=== PATIENT | female | born 1990 | race Hispanic/Latino ===

== ENCOUNTER 2018-10-30 19:24 | Emergency (ER) | payer OTHER ==
[2018-10-30 19:37] VITALS: O2SAT 100
[2018-10-30] MEDS ORDERED: Sodium Chloride 0.9% 1,000 ML IV STA (20:22)
[2018-10-30] MEDS ORDERED: Albuterol-Ipratrop 3 mg / 0.5 (3 ml) UD IH STA ×2 (20:23)
--- NOTE | 2018-10-30 20:26 | ED PDOC ---
HPI: CCC, URI, Sore Throat Time Seen by Provider: 10/30/18 20:15 Chief Complaint (Nursing): Shortness Of Breath Chief Complaint (Provider): cough, shortness of breath History Per: Patient History/Exam Limitations: no limitations Onset/Duration Of Symptoms: Days (2) Current Symptoms Are (Timing): Still Present Associated Symptoms: Fever, Chills, Cough, Nasal Congestion Additional Complaint(s): 28 y/o female, approximately 32 weeks gestation, presents for evaluation of cough and congestion x 2 days. Patient states she was seen by her primary doctor at onset of symptoms and prescribed Augmentin for a throat infection, but patient reports fever of 100F last night, and states she woke up this morning wheezing, and short of breath. Patient states she feels congested in her chest but is unable to bring up sputum with cough. Patient now complaining of abdominal pain. Denies fever, vomiting, chest pain, palpitations, vomiting, changes in bowel movements, vaginal bleeding/discharge, leg pain/swelling. Past Medical History Reviewed: Historical Data, Nursing Documentation, Vital Signs Vital Signs: Last Vital Signs Temp 97.6 F 10/30/18 19:33 Pulse 84 10/30/18 19:33 Resp 16 10/30/18 19:33 BP 123/79 10/30/18 19:33 Pulse Ox 100 10/30/18 19:33 - Medical History PMH: No Chronic Diseases - Family History Family History: States: No Known Family Hx - Living Arrangements Living Arrangements: With Family - Home Medications Home Medications: Ambulatory Orders Medication Instructions Recorded Albuterol HFA [Ventolin HFA 90 1 puff IH Q4 PRN #1 inh 10/30/18 mcg/actuation (8 g)] Prednisone [Deltasone] 40 mg PO DAILY #8 tablet 10/30/18 - Allergies Allergies/Adverse Reactions: Allergies Allergy/AdvReac Type Severity Reaction Status Date / Time "Atihistamines" AdvReac Anxiety Uncoded 10/30/18 19:35 Review of Systems ROS Statement: Except As Marked, All Systems Reviewed And Found Negative ENT: Positive for: Nose Congestion, Throat Pain Respiratory: Positive for: Cough, Shortness of Breath, Wheezing Physical Exam - Reviewed Nursing Documentation Reviewed: Yes Vital Signs Reviewed: Yes - Physical Exam Appears: Positive for: Well, Non-toxic, Uncomfortable (actively coughing) Head Exam: Positive for: ATRAUMATIC, NORMAL INSPECTION, NORMOCEPHALIC Skin: Positive for: Normal Color Eye Exam: Positive for: Normal appearance ENT: Positive for: Nasal Congestion, Pharyngeal Erythema Neck: Positive for: Normal, Painless ROM Cardiovascular/Chest: Positive for: Regular Rate, Rhythm Respiratory: Positive for: Rhonchi, Wheezing Gastrointestinal/Abdominal: Positive for: Normal Exam Back: Positive for: Normal Inspection Extremity: Positive for: Normal ROM Neurologic/Psych: Positive for: Alert, Oriented (x3) - Laboratory Results Result Diagrams: 10/30/18 20:50 10/30/18 20:50 - ECG ECG: Positive for: Viewed By Me (reviewed by ED attending) ECG Rhythm: Positive for: Sinus Rhythm O2 Sat by Pulse Oximetry: 100 - Progress ED Course And Treament: -cbc -cmp -rapid strep -influenza -IV NS bolus -duoneb x 2 On re-eval, patient states she is feeling better and would like to be discharged. Wheezing improved. No respiratory distress. Vitals stable Prednisone ordered Patient educated on findings, discharged with rx Albuterol HFA, prednisone Advised to continue antibiotic Follow up with primary doctor tomorrow Return precautions given Patient requires no further intervention in the ED and is stable for discharge at this time Patient discharged and transferred up to OB ED Disposition - Clinical Impression Clinical Impression: Bronchitis - Patient ED Disposition Is Patient to be Admitted: No Counseled Patient/Family Regarding: Studies Performed, Diagnosis, Need For Followup, Rx Given - Disposition Disposition: Routine/Home Disposition Time: 22:04 Condition: IMPROVED Prescriptions: Albuterol HFA [Ventolin HFA 90 mcg/actuation (8 g)] 1 puff IH Q4 PRN #1 inh PRN Reason: Wheezing Prednisone [Deltasone] 40 mg PO DAILY #8 tablet Instructions: Acute Bronchitis Forms: [employer] (Eritrean)
[2018-10-30 21:07] LABS: BASO % 0.5 % (0.0-2.0); EOS # 0.3 K/uL (0.0-0.7); EOS % 3.9 % (0.0-4.0); HEMOGLOBIN 11.4 g/dL (12.0-16.0); LYMPH # 1.8 K/uL (1.0-4.3); LYMPH % 22.5 % (20.0-40.0); MEAN CELL VOLUME 83.1 fl (81.0-99.0); MEAN CORPUSCULAR HEMOGLOBIN 28.1 pg (27.0-31.0); MEAN CORPUSCULAR HGB CONC 33.8 g/dL (33.0-37.0); MEAN PLATELET VOLUME 9.6 fl (7.2-11.7); MONO # 0.9 K/uL (0.0-0.8); MONO % 11.1 % (0.0-10.0); NRBC % 0.1 % (0.0-0.0); RBC 4.08 Mil/uL (3.80-5.20); RED CELL DISTRIBUTION WIDTH 13.1 % (11.5-14.5); WHITE BLOOD COUNT 8.1 K/uL (4.8-10.8)
[2018-10-30 21:30] LABS: ALB/GLOB RATIO 1.1 (1.0-2.1); ALBUMIN 3.6 g/dL (3.5-5.0); ALT/SGPT 16 U/L (9-52); AST/SGOT 24 U/L (14-36); BLOOD UREA NITROGEN 7 mg/dl (7-17); CALCIUM 9.6 mg/dL (8.4-10.2); GFR NON-AFRICAN AMERICAN > 60
[2018-10-30 21:41] LABS: SQUAMOUS EPITHIAL 1 /hpf (0-5); URINE BACTERIA MANY (<OCC); URINE BILIRUBIN NEGATIVE (NEGATIVE); URINE BLOOD NEGATIVE (NEGATIVE); URINE CLARITY CLEAR (Clear); URINE COLOR STRAW (YELLOW); URINE GLUCOSE (UA) NEG (NEGATIVE); URINE LEUKOCYTE ESTERASE NEG Leu/uL (Negative); URINE PROTEIN NEGATIVE (NEGATIVE); URINE UROBILINOGEN 0.2-1.0 mg/dL (0.2-1.0)
[2018-10-30 22:05] VITALS: BP 116/74; PULSE 93; RESP 18; TEMP 97.8
--- NOTE | 2018-10-31 09:15 | OBHP ---
Datetime: 10/30/2018 23:44 IP Adm Impression: , intrauterine IP Admit Plan: Observation/Evaluation Admit Comment, IP Provider: 28 Y/O with IUP at EGA 32 weeks by first T , who presents toda y with c/o difficulty breathing and wheezing. Patient states that 5 days ago she started with sore th roat and flu like symptoms and on Saturday she visited her PMD and was started on Augmentin 875 PO q12 h for bronchitis, she also reports she had fever Saturday and Saturday in the low 100s that was getti ng relief with Tylenol. Patient states she was afebrile today and feeling better, but then in the aft ernoon she started feeling some SOB and wheezing and came to the ED and was given Albuterol neb inh a nd Prednisone x2 doses oral with some relief of symptoms. Patient states she was also concerned that her bronchitis could affect her . Patient denies VB, CONTX, LOF, JULIAN, CP, or fever at this ti me of encounter. Patient reports + FM. Patient reports in the ED throat swab and Flu test done with r esults negative. ROS: Negative, except as per HPI provider: Dr Summers PMH: Denies. Denies Asthma hx FMH: Denies SOCHx: Denies ETOH/Tobacco/drug use ALLERG: Benadryl MEDS: PN Vit, Augmentin, Prednisone oral PE GEN: NAD HEENT: NCAT RESP: Noted diffuse wheezing b/l, good air entry. CV: RRR, S1 S2 present Abdomen: Gravid EXT: No edema FHR: 130s t0 140s A/P 28 Y/O with IUP at EGA 32 weeks by first T , who presented today with c/o SOB and wheezi ng seen in the ED and treated for Bronchitis. FHR monitored and confirmed 130s-140s Plan: -C/w Augmentin 875 -Ventolin neb as needed for SOB -C/w prednisone titrate down dose -D/C Home and F/u with your provider in 2 to 3 days -Return to the ED if your SOB recurs or you have fever>100.4, CP or other any concerning symptoms. Case seen and discussed with attending Dr Kelley at bedside Bib Araya MD PGY1 Addendum: I saw and examined patient. heart tracing category 1. Discussed plan with patient all patien t questions answered. Patient discharged home and follow up in office next week. Allie General - PN: Normal Comments, ACOG Physical Exam: See triage comments EGA AdmitDate IP: 84.6 Vital Signs Provider: Reviewed; Within Normal Limits IP Chief Complaint: Illness
--- NOTE | 2018-11-04 14:00 | CARD ---
APPROVED REPORT Date of service: 10/30/2018 EKG Measurement Heart [id number] <Conclusion> Normal sinus rhythm Normal ECG
== END 2018-10-31 00:05 | disposition home or self-care (01) ==
LOC: H.ER 19:24 → H.EROB2 19:24 → H.EROB 22:47 → H.EROB2 10-31 00:05
DX: O26.93 Pregnancy related conditions, unspecified, third trimester (principal); R10.2 Pelvic and perineal pain; O47.1 False labor at or after 37 completed weeks of gestation; Z3A.37 37 weeks gestation of pregnancy
CPT/HCPCS: 80053; 81003; 85025; 87070; 87430; 87804; 94640; 99283; J7030

== ENCOUNTER 2018-11-18 18:54 | Emergency (ER) | payer OTHER ==
[2018-11-18 19:43] VITALS: BMI 24.0
[2018-11-18 20:25] LABS: SQUAMOUS EPITHIAL 1 /hpf (0-5); URINE BACTERIA RARE (<OCC); URINE BILIRUBIN NEGATIVE (NEGATIVE); URINE BLOOD SMALL (NEGATIVE); URINE CLARITY CLEAR (Clear); URINE COLOR STRAW (YELLOW); URINE GLUCOSE (UA) NEG (NEGATIVE); URINE LEUKOCYTE ESTERASE NEG Leu/uL (Negative); URINE PROTEIN NEGATIVE (NEGATIVE); URINE UROBILINOGEN 0.2-1.0 mg/dL (0.2-1.0)
--- NOTE | 2018-11-18 22:33 | OBHP ---
Datetime: 11/18/2018 19:25 IP Adm Impression: , intrauterine IP Admit Plan: Discharge home Admit Comment, IP Provider: 28 y/o female w/ no pmhx at 35.2 GA presents to [facility] w/ c/o fluid l eakage that began last saturday. Patient went to the ER on Saturday and was told that her cervix was cl osed, the fluid was not amniotic fluid, placenta intact, and she was discharged to home. Today, she r eports worsening consistent fluid leakage, lower abdominal cramp 2/10 in severity, and seeing a drop of blood on her sanitary pad. She is unsure if the leaking fluid is urine. She denies gush of fluid. She was last sexually active on Saturday. She denies chest pain, SOB, nausea, vomiting. She denies urin donavan symptoms. OB: Dr. Summers Pmhx: none Famhx: Father has HTN SurgHx: breast augmentation 2013 Socialhx: denies tobacco, etoh, recreational drug use Allergies: none Assessment and Plan: 28 y/o female 35.2 GA intrauterine w/ suspected amniotic fluid leak FHR reactive, 135 BPM Speculum exam (by Dr. Poole): some clear pooling. Cervix closed. Nitrazine negative, ferning negative Will check U/A and urine culture U/S at bedside shows head in cephalic position Will check ANDRA 9:35PM: ANDRA 13.3, U/A negative. Will follow up urine culture Patient is stable for discharge to home w/ instructions to follow up w/ OB in office on 11/20. Patie nt advised of ER precautions Case discussed w/ attending, Dr. Virgilio Almanzar, PGY-I OB Hospitalist Addendum: Pt seen and examined by me. Agree w/ above. 28 yo G1 at 35+2 wks w/ c/ o leaking fluid and vaginal spotting. On exam; pt appears comfortable. Spec: small pool, nit neg, f mary neg. U/s: ANDRA 13.3. FHT reactive. Pt discharged home w/ PTL precautions. Pt has a f/u appoint w/ Dr. Summers on . 11/20/2017. (ES) Pelvic Type - PN: Adequate Extremities - PN: Normal Abdomen - PN: Normal Back - PN: Not Done Breast - PN: Not Done Lungs - PN: Normal Heart - PN: Normal Thyroid - PN: Normal Neurologic - PN: Normal HEENT - PN: Normal General - PN: Normal Presentation-Admit: Vertex (Annotations: Data stored by CPN on behalf of user) FHR - Baseline A Provider: 135 Membranes, Provider: Intact Contraction Comments Provider: irregular Comments, ACOG Physical Exam: U/S at bedside: head cephalic position Gestation - Est Wks by US: 35.2 Pool Provider: Positive Nitrazine Provider: Negative Ferning Provider: Negative IP Hx Assessment: The History has been Reviewed and is Current EGA AdmitDate IP: 35.2 Vital Signs Provider: Reviewed; Within Normal Limits IP Chief Complaint: Suspected ruptured membranes NICHD Variability Prov Fetus A: Moderate 6-25bpm (Annotations: Data stored by CPN on behalf of user) NICHD Accel Fetus A IP Provider: 15X15 NICHD Decel Fetus A IP Provider: None Dilatation, Provider: 0 Effacement, Provider: 60 Station, Provider: -2 Genitourinary Exam: Normal DTRs - PN: Not Done
[2018-11-19 02:01] VITALS: BP 138/91; PULSE 63
--- NOTE | 2018-11-19 11:30 | US ---
HISTORY: LMP: 03/06/2018 PROCEDURE: COMPARISON: None TECHNIQUE: Transabdominal scanning of the maternal pelvis and a 2nd/ 3rd trimester with image documentation FINDINGS: Fetus: Single intrauterine gestation heart rate: Present at 135beats per minute presentation: Cephalic Placenta: Fundal and anteriorwithout previa or abruption than 2 cm removed from the internal cervical os. Amniotic fluid : Normal appearin.34cm anatomy: Grossly unremarkable biometrics: Gestational age by ultrasound: 32 weeks 2 days +/-2 weeks 2 days. Gestational age by LMP is 36 weeks 5 days. Etimated date of delivery 01/11/2019 Estimated weight: 1905 g +/-286 g Maternal factors: Uterus: Unremarkable. No myometrial masses Cervical length not appreciated. Free fluid: None BPD 8.24 corresponded 33 weeks 1 day. Head circumference 28 point 6 8 cm corresponding to 31 weeks 4 days. Abdominal circumference 27.26 cm-corresponding 31 weeks 2 days. Femur length 145 corresponding 33 weeks 2 days IMPRESSION: Single intrauterine gestation -whose ultrasound biometric parameters are concordant with a gestational age of 32 weeks 2 days +/-2 weeks 2 days with an estimated date of delivery of 01/11/2019.. cardiac activity present and unremarkable. presentation and other findings as above. Reason for this request was to assess the amniotic fluid index for this particular exam which is 13.34 cm presentation is cephalic. Anterior placenta fundal no previous seen. Concordant results (preliminary interpretation) provided by kirstin.
== END 2018-11-18 21:40 | disposition home or self-care (01) ==
LOC: H.EROB2 18:54
DX: O34.63 Maternal care for abnormality of vagina, third trimester (principal); N89.8 Other specified noninflammatory disorders of vagina; Z3A.35 35 weeks gestation of pregnancy; O47.03 False labor before 37 completed weeks of gestation, third trimester; R10.2 Pelvic and perineal pain

== ENCOUNTER 2018-11-19 14:01 | Inpatient (IN) | payer OTHER ==
[2018-11-19 14:33] VITALS: BMI 25.6
[2018-11-19] MEDS ORDERED: Lactated Ringer's 1,000 ML IV ONE (14:33)
[2018-11-19] MEDS ORDERED: Betamethasone Soluspan 30 mg/5mL Inj Susp IM ONE (14:34)
[2018-11-19] MEDS ORDERED: Lactated Ringer's 1,000 ML IV SCH (15:45)
[2018-11-19 18:00] LABS: BASO % 0.4 % (0.0-2.0); EOS # 0.1 K/uL (0.0-0.7); EOS % 0.9 % (0.0-4.0); LYMPH # 1.5 K/uL (1.0-4.3); LYMPH % 17.6 % (20.0-40.0); MEAN CELL VOLUME 83.3 fl (81.0-99.0); MEAN CORPUSCULAR HEMOGLOBIN 27.5 pg (27.0-31.0); MEAN PLATELET VOLUME 10.7 fl (7.2-11.7); MONO # 0.7 K/uL (0.0-0.8); MONO % 7.7 % (0.0-10.0); NEUT # 6.4 K/uL (1.8-7.0); NEUT % 73.4 % (50.0-75.0); NRBC % 0.1 % (0.0-0.0); RBC 4.38 Mil/uL (3.80-5.20); RED CELL DISTRIBUTION WIDTH 13.2 % (11.5-14.5); WHITE BLOOD COUNT 8.7 K/uL (4.8-10.8)
[2018-11-19] MEDS ORDERED: Nalbuphine HCL 10 mg/ml Ampule IVP PRN (18:20)
[2018-11-19] MEDS ORDERED: Nalbuphine HCL 10 mg/ml Ampule ONE (19:03)
--- NOTE | 2018-11-20 07:27 | OBADHP ---
Datetime: 11/19/2018 15:45 Admit Comment, IP Provider: 28 y/o female w/ no pmhx at 35.3 wks, based on 1st trimester US pre sents to [facility] w/ c/o contractions that started yesterday at 1 am today. Contractions were Q5-15 mins initially which are 5-10 mins now. Pain radiates from back to lower pelvis. Reports mild vaginal spot ting and and leaking since saturday. Reports pelvic pressure and urge to go to bathroom. Nausea in AM w hich is resolved. She was last sexually active on Saturday. She denies chest pain, SOB, vomiting. Patient was seen yesterday in [facility] for LOF, On exam cervix closed, - pooling, Negative nitrazine, Neg ferning, US ANDRA 13.3 and neg UA. Nitrazine negative, ferning negative U/S at bedside shows head in cephalic position. So patient was discharged home. Patient went to seen Dr. Woods this morning and was told she is 80%, 0-1 cm dilated. OB: Dr. Summers Pmhx: none Famhx: Father has HTN, Mother PCOS SurgHx: breast augmentation 2013 Socialhx: denies tobacco, etoh, recreational drug use Allergies: Benadryl Assessment and Plan: 28 y/o female 35.3 GA intrauterine presents w contractions and suspected la bor. - TOco and EFM monitoring, NST reactive 140 FHR, + acces, - decels, Moderate variability - CBC, type and screen, HIV, RPR labs - S/P Betamethazone 12 mg IM - Continue LR 1L @999ml/hr - Monitor for cervical changes - Continue liquid diet Case discussed with attending Bari Barbosa, PGY1 The patient was seen with the resident I agree with the now patient will be placed in observation steroids administered discussed labor with patient and partner. Patient partner were given th e opportunity ask questions all questions answered and agreed to plan of care Pelvic Type - PN: Adequate Extremities - PN: Normal Abdomen - PN: Normal Back - PN: Normal Breast - PN: Not Done Lungs - PN: Normal Heart - PN: Normal Thyroid - PN: Normal Neurologic - PN: Normal HEENT - PN: Normal General - PN: Normal Presentation-Admit: Oblique FHR - Baseline A Provider: 140 Contraction Comments Provider: regular Comments, ACOG Physical Exam: GEN: Mild distress during CTx Heart: S1S2 present, RRR Lungs: CTAB Abdomen: Gravid, NT SVE: 1cm/100%/0 Ext: No pedal edema, Calf tenderness IP Hx Assessment: The History has been Reviewed and is Current Vital Signs Provider: Reviewed; Within Normal Limits IP Chief Complaint: Uterine contractions; Maternal discomfort NICHD Variability Prov Fetus A: Moderate 6-25bpm NICHD Accel Fetus A IP Provider: 15X15 FHR Category Provider Fetus A: Category I NICHD Decel Fetus A IP Provider: None Dilatation, Provider: 1 Effacement, Provider: 100 Station, Provider: 0 Genitourinary Exam: Normal DTRs - PN: Normal EGA AdmitDate IP: 35.3 IP Adm Impression: , intrauterine IP Admit Plan: Admit to unit; Initiate labor protocol Datetime: 11/18/2018 19:25 Membranes, Provider: Intact Gestation - Est Wks by US: 35.2 Pool Provider: Positive Nitrazine Provider: Negative Ferning Provider: Negative
--- NOTE | 2018-11-20 11:01 | OBPN ---
Datetime: 11/20/2018 09:00 IP Progress Plan: Continue present management Contraction Comments Provider: Infrequent contractions FHR - Baseline A Provider: 130 IP Progress Note Comment: Patient evalauted at bedside, no new complaints. Overall reports contracti ons are less frequent and less painful. No new vaginal bleeding, no leaking, +FM TFC=272 mod kasey, +accels, no decels TOCO = barbie infrequently A/P 1. Will continue to observe patient at this time. FHR = 130 Cat-I, no new signs of labor. Patient had been recently examined by previous physician and found to be 1/100/-2 2. Second dose of Betamethasone to be given at 2pm (12 hours from first) - will re-evaluate ankit gavin at that time 3. CEFM and TOCO Vital Signs Provider: Reviewed; Within Normal Limits NICHD Accel Fetus A IP Provider: 15X15 NICHD Variability Prov Fetus A: Moderate 6-25bpm NICHD Decel Fetus A IP Provider: None Datetime: 11/20/2018 07:41 IP Progress Impression Other: Threatened labor Gestation - Est Wks by US: 35.4 Dilatation, Provider: 1 Effacement, Provider: 100 Station, Provider: 0 Datetime: 11/19/2018 15:45 Presentation-Admit: Oblique FHR Category Provider Fetus A: Category I Datetime: 11/18/2018 19:25 Pool Provider: Positive Nitrazine Provider: Negative Ferning Provider: Negative Membranes, Provider: Intact
[2018-11-20] MEDS ORDERED: Betamethasone Soluspan 30 mg/5mL Inj Susp IM ONE (14:35)
--- NOTE | 2018-11-20 15:35 | OBPN ---
Datetime: 11/20/2018 15:00 IP Progress Plan: Discharge Membranes, Provider: Intact Contraction Comments Provider: irregularly FHR - Baseline A Provider: 130 IP Progress Note Comment: Patient re-evaluated, feeling some contractions but does not feel they hav e increased in intensity since yesterday. VE = /100/-2 FHR = 130 mod kasey, +accels, no decels TOCO = ctxning irregularly A/P 1. patient re-evaluated, no cervical change in over 8 hours. Pt progressed from FT - 1cm dilated i n 24 hour period, FHR = cat-1 and contractions wax and wane. Patient is clinically stable and does no t appear to be in labor. Patient received second Betamethadone injection at around 3pm 2. Patient discharged home, discharge instructions reviewed and labor precautions. Instructed arsen ent to come to office tomorrow for evaluation or back to hospital if new bleeding, leaking, increased contraction intensity. All questions answered Vital Signs Provider: Reviewed; Within Normal Limits NICHD Accel Fetus A IP Provider: 15X15 NICHD Variability Prov Fetus A: Moderate 6-25bpm Dilatation, Provider: 1 Effacement, Provider: 100 Station, Provider: -2
--- NOTE | 2018-11-20 15:37 | OBDCSUM ---
Datetime: 11/20/2018 15:19 Discharged to, Provider: Home Follow up at, Provider: Dr Woods Disch Instr Activity: May be up to bathroom; May be up for meals; May Shower Disch Instr Diet: Regular Discharge Diagnosis, Provider: False Labor - Undelivered Discharge Time: 11/20/2018 15:25 Follow up in weeks, Provider: tomorrow 11/21/18 at 1315 Disch Activity Restrictions: No exercising; Nothing in vagina - [place], tampons, douche Discharge Diagnosis Prov Other: false labor
[2018-11-20 20:41] VITALS: BP 105/58; PULSE 67; RESP 20; TEMP 98.4; O2SAT 100
== END 2018-11-20 15:25 | disposition home or self-care (01) | DRG 833 ==
LOC: H.EROB2 14:01 → H.EROB 14:03 → H.L&D 15:46 → H.EROB2 16:01 → H.L&D 16:18
PROVIDERS: ADMIT Obstetrics & Gynecology Gynecology; ATTEND Obstetrics & Gynecology Gynecology
PROC: 4A1HXCZ Monitoring of Products of Conception, Cardiac Rate, External Approach (ICD-10-PCS; principal; 2018-11-19)
DX: O47.03 False labor before 37 completed weeks of gestation, third trimester (principal); Z3A.35 35 weeks gestation of pregnancy

== ENCOUNTER 2018-11-21 13:54 | Inpatient (IN) | payer OTHER ==
[2018-11-21 14:30] VITALS: BMI 25.4
[2018-11-21] MEDS ORDERED: Lactated Ringer's 1,000 ML IV ONE (14:31)
[2018-11-21] MEDS ORDERED: Oxytocin 30 UNIT 30 UNITS/500 ML BAG IV ONE (14:37)
[2018-11-21] MEDS ORDERED: Lactated Ringer's 1,000 ML IV SCH (14:45)
--- NOTE | 2018-11-21 18:08 | OBADHP ---
Datetime: 11/21/2018 15:45 Admit Comment, IP Provider: HPI: Fawn is a 28 year old G1 at 35.5 who was sent today from her O BGYN's office due to continued contractions. She was hospitalized here antepartum from 11/19 - 11/20 due to 100% effacement of her cervix and 1cm dilation along with painful contractions. She was given 2 do ses of betamethasone at that time but her cervical exam did not progress and her contractions eventua lly subsided. She was discharged home yesterday afternoon with return precautions. At her f/u visit t amanda she reported continued contractions and some leaking of fluid. Speculum exam revealed intact mem branes and her cervical exam was now 4cm. PMH: none PSH: Denies Famhx: Father has HTN, Mother PCOS SurgHx: breast augmentation 2013 Socialhx: denies tobacco, etoh, recreational drug use Allergies: Benadryl OBJECTIVE Vitals reviewed labs: B+, Ab neg, GTT 73, RPR nonreactive, HIV nonreactive, GC/Chlamydia neg, Hep B neg, Rubella immune Assessment and Plan: 28 year old G1 admitted for labor - Pursuing expectant management at this time, no indication for tocolysis - GBS status unknown, will need prophylaxis once she is in active labor or ruptures - Membranes intact - Betamethasone completed 11/20 - Vertex presentation, anticipate vaginal delivery Radha Prado MD OB Fellow OB Hospitalist Addendum: Pt seen by me. Agree w/ above. 28 yo G1 at 35+5 wks w/ advanced dilatio n, s/p Betamethasone x2, admitted to L_D. Will start GBS prophylaxis when she is in active labor an d /or for ruptured menbranes. FHT reactive. (ES) HEENT - PN: Normal General - PN: Normal Presentation-Admit: Vertex FHR - Baseline A Provider: 120 Contraction Comments Provider: Q10 min Comments, ACOG Physical Exam: Resp: nonlabored respirations CV: Regular rate Abdomen: gravid, nontender Gestation - Est Wks by US: 35.5 Vital Signs Provider: Reviewed; Within Normal Limits IP Chief Complaint: Uterine contractions NICHD Variability Prov Fetus A: Moderate 6-25bpm NICHD Accel Fetus A IP Provider: 15X15 FHR Category Provider Fetus A: Category I NICHD Decel Fetus A IP Provider: None Dilatation, Provider: 4 Effacement, Provider: 100 Station, Provider: 0 EGA AdmitDate IP: 35.5 IP Adm Impression: , intrauterine IP Admit Plan: Admit to unit; Initiate labor protocol Datetime: 11/20/2018 15:00 Membranes, Provider: Intact
[2018-11-21 23:04] LABS: BASO % 0.1 % (0.0-2.0); HEMOGLOBIN 10.4 g/dL (12.0-16.0); LYMPH # 1.6 K/uL (1.0-4.3); LYMPH % 13.3 % (20.0-40.0); MEAN CELL VOLUME 84.1 fl (81.0-99.0); MEAN CORPUSCULAR HEMOGLOBIN 27.7 pg (27.0-31.0); MEAN CORPUSCULAR HGB CONC 32.9 g/dL (33.0-37.0); MEAN PLATELET VOLUME 10.1 fl (7.2-11.7); MONO # 1.2 K/uL (0.0-0.8); MONO % 10.2 % (0.0-10.0); NEUT # 9.2 K/uL (1.8-7.0); NEUT % 76.4 % (50.0-75.0); NRBC % 4.2 % (0.0-0.0); RBC 3.76 Mil/uL (3.80-5.20); RED CELL DISTRIBUTION WIDTH 13.4 % (11.5-14.5); WHITE BLOOD COUNT 12.1 K/uL (4.8-10.8)
[2018-11-22] MEDS ORDERED: Penicillin G Potassium 5 MU in Sodium Chloride 0.9% 50 ML IVPB ONE (09:00)
[2018-11-22] MEDS ORDERED: Oxytocin 30 UNITS in Sodium Chloride 0.9% 500 ML IV ONE (10:00)
[2018-11-22] MEDS: Lactated Ringer's 1,000 ML IV SCH ×2 (12:15→13:00)
[2018-11-22] MEDS ORDERED: Bupivacaine HCl 0.5% PF (30 ml) Inj ONE (13:42)
[2018-11-22] MEDS ORDERED: Fentanyl/Bupivacaine HCl 250 ML EPI ONE (14:04)
--- NOTE | 2018-11-22 15:12 | OBPN ---
Datetime: 11/22/2018 09:00 IP Progress Impression: Reassuring heart rate IP Informed Consent Obtain: Vaginal Delivery; Risks, Benefits and Alternatives Discussed IP Progress Plan: Augmentation; Anesthesia consult; Antibiotic therapy; Anticipate Vaginal Delivery Pool Provider: Negative Membranes, Provider: Bulging Contraction Comments Provider: occ Presentation-Admit: Vertex IP Progress Note Comment: Sign out rec'd she is uncmfortable from CTX pain - back and lower abd. Pain has been worseing last night. She wa s admitted and given steroids earlier this week (two doses). She was discharged home when she was had no cervical change. She was seen at the office and sent for CTXs. A: IUP at 35w6d CTX pain/early labor PLAN: discussion with Fawnand her about condition. Also, I contacted Dr Garcia...I V Ab, augment and deliver. Pain management, labor, medications, augmentation, delivery and postpartu m were discussed - incl risks/complicatoins. She wants to start Pitocin/epidural/deliver. Her quest ions answered. her was present for conversation FHR Category Provider Fetus A: Category I Dilatation, Provider: 4-5 Effacement, Provider: 100 Station, Provider: 0 NICHD Decel Fetus A IP Provider: None Datetime: 11/21/2018 15:45 FHR - Baseline A Provider: 120 Gestation - Est Wks by US: 35.5 Vital Signs Provider: Reviewed; Within Normal Limits NICHD Accel Fetus A IP Provider: 15X15 NICHD Variability Prov Fetus A: Moderate 6-25bpm
--- NOTE | 2018-11-22 17:28 | OBPN ---
Datetime: 11/22/2018 17:00 IP Progress Impression: Normal progression of labor; Reassuring heart rate IP Progress Plan: Continue present management; Augmentation; Anticipate Vaginal Delivery Membranes, Provider: Bulging Contraction Comments Provider: 1-3m FHR - Baseline A Provider: 135 Presentation-Admit: Vertex IP Progress Note Comment: She rec'd epidural and Pitoicn at 2miui/h. She is being evaluated by christianne myers - [place]. She is breathing well. Pulse ox 100% room air Active phase of labor PLAN: cont present management sono confirmed ceph monitor progress NICHD Accel Fetus A IP Provider: 15X15 FHR Category Provider Fetus A: Category I NICHD Variability Prov Fetus A: Moderate 6-25bpm Dilatation, Provider: 9 Effacement, Provider: 100 Station, Provider: 0 NICHD Decel Fetus A IP Provider: None
[2018-11-22] MEDS ORDERED: Lidocaine 1% Inj (20ml) ONE (19:10)
[2018-11-22] MEDS ORDERED: Benzocaine/Menthol SPRAY TOP PRN ×2 (19:55→22:00)
[2018-11-22] MEDS ORDERED: Oxycodone/Acetaminophen 5/325 mg Tab PO PRN ×4 (19:55→22:00)
[2018-11-22] MEDS ORDERED: OXYTOCIN/0.9 % NS 20 UNIT/1,000 ML BAG IV ONE (19:55)
--- NOTE | 2018-11-23 06:14 | OBDS ---
DELIVERY PERSONNEL Delivery Doctor: Dayo Shaw DO Credentialing Manager: Eric RN/Hi ÁLVAREZ/Christiano ÁLVAREZ Anesthesiologist: Zeinab Mcneill MD MATERNAL INFORMATION Delivery Anesthesia: Epidural Medications in Delivery: Pitocin Estimated Blood Loss (ml): 50 Placenta Cultured: Yes Maternal Complications: None Provider Comments: She was pushing whne she was fully dilated. AROM was performed as baby was coing down. Over intact perineum, of live male. Infat was crying spontaneously. Peds presen t. Umbilical cord was clapmed and cut by father. Infant was placed on mother's chest. Placenta was delivered intact spontaneously. Fluid after - Placenta = 50cc EBL She remained stable LABOR SUMMARY EDC: 12/21/2018 00:00 No. Babies in Womb: 1 Attempted: No Labor Anesthesia: Epidural LABOR INFORMATION Reason for Induction: Not Applicable Onset of Labor: 11/22/2018 15:45 Complete Dilatation: 11/22/2018 18:50 Oxytocin: Augmentation Group B Beta Strep: Negative Antibiotics # of Doses: 3 Antibiotics Time of Last Dose: 1750 Steroids Given: Full Course; > 24 Hours before Delivery Reason Steroids Not Administered: Not Applicable MEMBRANES Membranes Rupture Method: Artificial Rupture of Membranes: 11/22/2018 19:11 Length of Rupture (hrs): 0.22 Amniotic Fluid Color: Clear Amniotic Fluid Amount: Small Amniotic Fluid Odor: Normal STAGES OF LABOR Stage 1 hrs: 3 Stage 1 min: 5 Stage 2 hrs: 0 Stage 2 min: 34 Stage 3 hrs: 0 Stage 3 min: 7 Total Time in Labor hrs: 3 Total Time in Labor min: 46 VAGINAL DELIVERY Episiotomy: None Laceration Extension: First Degree Laceration Type: Perineal Laceration Repair: Yes Laceration Repair Note: Lidocaine was infiltrated 2-3cc. 2.0 Vicryl Rapide sutrue was used for repa ir Initial Vag Sponge Count: 5 Final Vag Sponge Count: 5 Initial Vag Sharps Count: 1 Final Vag Sharps Count: 1 Sponge Count Correct: Yes Sharps Count Correct: Yes Count Comment: Laps 5 Sharps 1 Instruments 15 BABY A INFORMATION Delivery Date/Time: 11/22/2018 19:24 Method of Delivery: Vaginal Born in Route : No : N/A Forceps: N/A Vacuum Extraction: N/A Shoulder Dystocia : No ASSISTED DELIVERY BABY A Station Vacuum/Forcep Apply: SHOULDER DYSTOCIA BABY A Infant Delivery Date/Time: 11/22/2018 19:24 PRESENTATION/POSITION BABY A Presentation: Cephalic Cephalic Presentation: Vertex Breech Presentation: N/A PLACENTA INFORMATION BABY A Placenta Delivery Time : 11/22/2018 19:31 Placenta Method of Delivery: Spontaneous Placenta Status: Delivered SCORES BABY A Heart Rate 1 min: >100 bpm Resp Effort 1 min: Good Cry Reflex Irritability 1 min: Cough or Sneeze or Pulls Away Muscle Tone 1 min: Active Motion Color 1 min: Body Gause, Extremities Blue Resuscitation Effort 1 min: Tactile Stimulation SCORE 1 MIN: 9 Heart Rate 5 min: >100 bpm Resp Effort 5 min: Good Cry Reflex Irritability 5 min: Cough or Sneeze or Pulls Away Muscle Tone 5 min: Active Motion Color 5 min: Body Gause, Extremities Blue Resuscitation Effort 5 min: N/A SCORE 5 MIN: 9 INFANT INFORMATION BABY A Gestational Age at Delivery: 35.6 Gestational Status: Outcome : Liveborn Condition : Stable Infant Sex: Male IDENTIFICATION/MEDS BABY A ID Band Number: [id number] ID Band Location: Left Leg; Left Arm WEIGHT/LENGTH BABY A Birthweight (gms): 2245 Weight (lb): 4 Infant Weight (oz): 15 CORD INFORMATION BABY A No. Cord Vessels: 3 Nuchal Cord : N/A Cord Blood Taken: Yes Infant Suction: Mouth; Nose ASSESSMENT BABY A Complications: None Physical Findings at Delivery: Within Normal Limits Respirations: Grunting Chin Strap Sewer/ALS Called : No Infant Care By: Dr. Leyva and Tonja RN Transferred To: Remains with Mother
--- NOTE | 2018-11-23 06:23 | OBPPN ---
Datetime: 11/23/2018 06:13 PP Pain Prov: Within normal limits PP Breasts Prov: Normal PP Heart Prov: Normal PP Lungs Prov: Normal PP Abdomen/Uterus Prov: Normal PP Lochia Prov: Normal PP Vulva/Perineum Prov: Normal PP CVA Tenderness Prov: Normal PP Extremities Prov: Normal PP Progress Prov: Normal PP Progress Note Prov: Notified of Temp 101. She was axious last night and given Ambien to help sleep. She was able to void throughout the night. No chills. No abd pain. No F/U/D Check CBC/Blood culture/UA/Urine cutlure Vital Signs Provider PP: Reviewed; Within Normal Limits
[2018-11-23 07:01] LABS: BASO % 0.4 % (0.0-2.0); EOS % 0.3 % (0.0-4.0); HEMOGLOBIN 11.4 g/dL (12.0-16.0); LYMPH # 2.1 K/uL (1.0-4.3); LYMPH % 19.8 % (20.0-40.0); MEAN CELL VOLUME 82.4 fl (81.0-99.0); MEAN CORPUSCULAR HEMOGLOBIN 27.6 pg (27.0-31.0); MEAN CORPUSCULAR HGB CONC 33.5 g/dL (33.0-37.0); MEAN PLATELET VOLUME 9.7 fl (7.2-11.7); MONO # 1.2 K/uL (0.0-0.8); MONO % 10.9 % (0.0-10.0); NEUT # 7.4 K/uL (1.8-7.0); NEUT % 68.6 % (50.0-75.0); NRBC % 0.1 % (0.0-0.0); RBC 4.13 Mil/uL (3.80-5.20); RED CELL DISTRIBUTION WIDTH 13.4 % (11.5-14.5); WHITE BLOOD COUNT 10.7 K/uL (4.8-10.8)
--- NOTE | 2018-11-23 07:55 | OBPPN ---
Datetime: 11/23/2018 07:51 PP Pain Prov: Within normal limits PP Nausea Prov: Denies PP Breasts Prov: Normal PP Heart Prov: Normal PP Lungs Prov: Normal PP Abdomen/Uterus Prov: Normal PP Lochia Prov: Normal PP Extremities Prov: Normal PP Progress Prov: Normal PP Impression Prov: Normal progression; Increased temperature PP Progress Note Prov: PPD 1 s/p , w/ temp 101 at 0545, breast feeding Will start tylenol 650 mg q4 hr as needed NO focal signs of infection on exam Will continue to follow VS Vital Signs Provider PP: Reviewed
[2018-11-23 10:08] LABS: SQUAMOUS EPITHIAL < 1 /hpf (0-5); URINE BACTERIA OCC (<OCC); URINE BILIRUBIN NEGATIVE (NEGATIVE); URINE BLOOD LARGE (NEGATIVE); URINE CLARITY CLOUDY (Clear); URINE COLOR RED (YELLOW); URINE GLUCOSE (UA) NEG (NEGATIVE); URINE LEUKOCYTE ESTERASE MOD Leu/uL (Negative); URINE PROTEIN 100 mg/dL (NEGATIVE); URINE UROBILINOGEN 0.2-1.0 mg/dL (0.2-1.0); WBC CLUMPS MANY /hpf
--- NOTE | 2018-11-24 03:32 | OBPPN ---
Datetime: 11/24/2018 03:26 PP Pain Prov: Within normal limits PP Nausea Prov: Present PP Heart Prov: Normal PP Lungs Prov: Normal PP Abdomen/Uterus Prov: Normal PP Extremities Prov: Normal PP Progress Prov: Normal PP Comments Phys Exam Prov: DTRs 2+ PP Impression Prov: Induced Hypertension PP Progress Note Prov: PPD 2 s/p at 35+ 6 wks woke up and noticed her urine was "yellow" and magnus nk 2 small bottles of water and is feeling nauseated now. BP 151/101 Discussed her persistent elevated BP and rec labetolol Explained to her and her that she may have GHTN PP although she has been attributing BPs t o anxiety Will check [facility] labs Pt ordered for zofran IM Pt declined the med for now Vital Signs Provider PP: Reviewed
[2018-11-24 03:50] LABS: BASO % 0.2 % (0.0-2.0); EOS # 0.3 K/uL (0.0-0.7); EOS % 2.6 % (0.0-4.0); HEMOGLOBIN 12.2 g/dL (12.0-16.0); LYMPH # 3.3 K/uL (1.0-4.3); LYMPH % 33.1 % (20.0-40.0); MEAN CELL VOLUME 84.8 fl (81.0-99.0); MEAN CORPUSCULAR HEMOGLOBIN 27.9 pg (27.0-31.0); MEAN CORPUSCULAR HGB CONC 32.9 g/dL (33.0-37.0); MEAN PLATELET VOLUME 9.6 fl (7.2-11.7); NEUT # 5.4 K/uL (1.8-7.0); NEUT % 54.1 % (50.0-75.0); NRBC % 0.1 % (0.0-0.0); RBC 4.38 Mil/uL (3.80-5.20); RED CELL DISTRIBUTION WIDTH 13.7 % (11.5-14.5); WHITE BLOOD COUNT 9.9 K/uL (4.8-10.8)
[2018-11-24 04:03] LABS: ALB/GLOB RATIO 1.1 (1.0-2.1); ALBUMIN 3.4 g/dL (3.5-5.0); ALT/SGPT 26 U/L (9-52); AST/SGOT 37 U/L (14-36); BLOOD UREA NITROGEN 11 mg/dl (7-17); CALCIUM 9.4 mg/dL (8.4-10.2); GFR NON-AFRICAN AMERICAN > 60
[2018-11-25 00:56] VITALS: BP 157/93; PULSE 63; RESP 20; TEMP 98; O2SAT 99
== END 2018-11-24 20:46 | disposition home or self-care (01) | DRG 807 ==
LOC: H.EROB2 13:54 → H.L&D 14:31 → H.OB/GYN 11-22 21:26
PROVIDERS: ADMIT Obstetrics & Gynecology; ATTEND Obstetrics & Gynecology
PROC: 4A1HXCZ Monitoring of Products of Conception, Cardiac Rate, External Approach (ICD-10-PCS; 2018-11-21)
PROC: 10E0XZZ Delivery of Products of Conception, External Approach (ICD-10-PCS; principal; 2018-11-22)
PROC: 0HQ9XZZ Repair Perineum Skin, External Approach (ICD-10-PCS; 2018-11-22)
DX: O60.14X0 Preterm labor third trimester with preterm delivery third trimester, not applicable or unspecified (principal); Z37.0 Single live birth; Z3A.35 35 weeks gestation of pregnancy; O70.0 First degree perineal laceration during delivery